=== PATIENT | male | born 1975 | race Caucasian/White ===

== ENCOUNTER 2021-07-16 14:37 | Emergency (ER) | payer OTHER ==
[~2021-07-16] VITALS: Ht 172.7 cm; Wt 86.2 kg
--- NOTE | 2021-07-16 14:44 | NUR ---
[facility] [employer] FROM RETIREMENT FOR OTB C/O HIGH BP 190 SYSTOLIC AND HIGH BG 433. TO ER BED 4, HOOKED TO MONITOR, CHANGED TO HOSP GOWN, WARM BLANKET PROVIDED, PATIENT AAO x 4, NO DISTRESS NOTED. DR LOOMIS AT BEDSIDE
[2021-07-16 15:28] LABS: BASOPHILS % (AUTO) 0.2 % (0.0-2.0); EOSINOPHILS % (AUTO) 0.1 % (0.0-6.0); HEMATOCRIT 42 % (39-51); HEMOGLOBIN 14.4 g/dL (13.5-17.5); LYMPHOCYTES # (AUTO) 1.1 K/uL (0.8-4.8); MEAN CORPUSCULAR HGB CONC 35 g/dl (31.0-36.0); MEAN CORPUSCULAR VOLUME 87 fL (80-96); MONOCYTES # (AUTO) 0.5 K/uL (0.1-1.30); MONOCYTES % (AUTO) 4.3 % (2.0-12.0); NEUTROPHILS % (AUTO) 85.4 % (43.0-81.0); PLATELET COUNT (AUTO) 264 K/uL (150-450); RED BLOOD CELL COUNT(AUTO) 4.81 MIL/uL (4.5-6.0); WHITE BLOOD COUNT (AUTO) 10.6 K/uL (4.3-11.0)
[2021-07-16 15:53] LABS: CALCIUM, SERUM 9.4 mg/dL (8.5-10.1); CREATININE 1.2 mg/dL (0.6-1.3); POTASSIUM 4.6 mmol/L (3.5-5.1)
[2021-07-16] MEDS ORDERED: INSULIN REGULAR, HUMAN 100 UNIT/ML 10 ML VIAL SQ ONE (16:30)
[2021-07-16] MEDS ORDERED: INSULIN REGULAR, HUMAN 100 UNIT/ML 10 ML VIAL ONE (16:48)
[2021-07-16] MEDS ORDERED: INSULIN LISPRO 100 UNIT/ML SQ ONE (17:00)
--- NOTE | 2021-07-16 17:07 | NUR ---
Witnessed Humalog 6 Units given by JACKLYN Ypi.
--- NOTE | 2021-07-16 17:07 | NUR ---
6 UNITS INSULIN HUMALOG GIVEN FOR 347MG/DL BLOOD GLUCOSE AT [facility]
[2021-07-16] MEDS ORDERED: CLONIDINE HCL 0.1 MG TABLET ONE (17:19)
[2021-07-16] MEDS ORDERED: CLONIDINE HCL 0.1 MG TABLET PO ONE (17:30)
--- NOTE | 2021-07-16 17:59 | NUR ---
Patient discharged in custody of [employer] officers in stable condition. Written and verbal after care instructions given. Patient and [employer] officers verbalizes understanding of instruction.
[2021-07-16 18:05] VITALS: BP 171/108
== END 2021-07-16 18:05 ==
LOC: ER 14:37
DX: E11.65 Type 2 diabetes mellitus with hyperglycemia (principal); I10 Essential (primary) hypertension
CPT/HCPCS: 36415; 80048; 82962 ×2; 85025; 96372; 99285; J1815 ×2